=== PATIENT | male | born 1955 | race Two or more races ===

== ENCOUNTER 2021-04-17 15:37 | Emergency (ER) | payer OTHER ==
[~2021-04-17] VITALS: Ht 157.5 cm; Wt 65.8 kg
[~2021-04-17 15:37] MED LIST: PRILOSEC20 MG PO
[2021-04-17] MEDS ORDERED: ALTACE10 MG (16:15)
== END 2021-04-17 23:08 ==
LOC: ER 15:37
DX: R00.2 Palpitations (principal); I10 Essential (primary) hypertension; J45.998 Other asthma; E03.9 Hypothyroidism, unspecified; Z20.822 Contact with and (suspected) exposure to COVID-19

== ENCOUNTER 2023-12-12 09:27 | Emergency (ER) | payer OTHER ==
[~2023-12-12] VITALS: Ht 157.5 cm; Wt 65.3 kg
[~2023-12-12 09:27] MED LIST changes: +ALTACE10 MG
[2023-12-12] MEDS ORDERED: ZESTRIL40 M1 (10:01)
[2023-12-12] MEDS ORDERED: SYNTHROID75 MCG PO (10:02)
[2023-12-12] MEDS ORDERED: ADVAIR 100-501 EACH IH (10:09)
[2023-12-12] MEDS ORDERED: BARIUM SULFATE 450 ML ORAL.SUSP PO ONE (10:50)
[2023-12-12 11:12] LABS: PH,URINE 7.5 (5.0-8.0); URINE APPEARANCE Clear; URINE BILIRRUBIN Negative (NEGATIVE); URINE BLOOD Negative; URINE COLOR Yellow; URINE GLUCOSE Negative (NEGATIVE); URINE KETONE Negative (NEGATIVE); URINE LEUKOCYTE Trace; URINE NITRATE Negative; URINE PROTEIN Negative (NEGATIVE); URINE UROBILINOGEN 0.2 E.U./dl
[2023-12-12 11:16] LABS: URINE RBC 8.8 uL (0.0-20.8)
[2023-12-12 11:19] LABS: HEMATOCRIT 41.9 % (39.0-48.0); HEMOGLOBIN 14.2 g/dL (13-16.00); MEAN CELL VOLUME 90.6 fL (80.0-100.00); MEAN CORPUSCULAR HEMOGLOBIN 30.6 pg (27.00-32.0); MEAN CORPUSCULAR HGB CONC 33.8 g/dl (32.0-36.0); PLATELET COUNT 216 K/uL (150-450); RED BLOOD COUNT 4.63 M/uL (4.00-6.00); RED CELL DISTRIBUTION WIDTH 14.5 % (11.5-14.5)
[2023-12-12 11:21] LABS: URINE BACTERIA 1.2 uL (0.0-1933); URINE EPITHELIAL CELLS 0.6 uL (0.0-38.8)
[2023-12-12 11:38] LABS: CALCIUM 9.4 mg/dL (8.5-10.1); CREATININE SERUM 0.85 mg/dL (0.70-1.30); GFR 90.18; POTASSIUM 3.7 mEq/L (3.5-5.1)
[2023-12-12] MEDS ORDERED: METRONIDAZOLE/SODIUM CHLORIDE 500 MG/100 ML PIGGYBACK IV ONE ×2 (14:13→14:15)
[2023-12-12] MEDS ORDERED: CIPROFLOXACIN IN 5 % DEXTROSE 400 MG/200 ML PIGGYBAG IV ONE ×2 (14:13→14:15)
== END 2023-12-12 15:21 | disposition home or self-care (01) ==
LOC: ER 09:29
PROVIDERS: Emergency Medicine
DX: R10.9 Unspecified abdominal pain (principal); I10 Essential (primary) hypertension; E03.8 Other specified hypothyroidism
CPT/HCPCS: 36415; 74177; 96365; 99284; J0744; J3490; Q9965